=== PATIENT | female | born 1995 | race African-American/Black ===

== ENCOUNTER 2017-11-24 00:18 | Emergency (ER) | payer OTHER ==
[2017-11-24 00:31] VITALS: BP 109/59; PULSE 72; TEMP 98.1; BMI 39.8
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
[2017-11-24] MEDS ORDERED: morphine CARPU-JECT 2 MG/1 ML DISP.SYRIN IM ONE (01:40)
[2017-11-24] MEDS ORDERED: diazePAM 5 MG TABLET PO ONE (01:40)
[2017-11-24] MEDS ORDERED: diazePAM 5 MG TABLET ONE (01:52)
[2017-11-24 02:59] LABS: HCG,QUALITATIVE URINE NEGATIVE; URINE APPEARANCE CLEAR; URINE BILIRUBIN NEGATIVE (<2.0 mg/dL); URINE BLOOD NEGATIVE (NEGATIVE); URINE COLOR YELLOW; URINE GLUCOSE (UA) NEGATIVE (NEGATIVE); URINE KETONE NEGATIVE (NEGATIVE); URINE LEUK ESTERASE TRACE (NEGATIVE); URINE NITRITE NEGATIVE (NEGATIVE); URINE PROTEIN NEGATIVE (NEGATIVE)
[2017-11-24 03:08] LABS: EPI CELLS RARE /HPF (FEW); URINE BACTERIA RARE /hpf (NONE SEEN); URINE MUCUS RARE
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
[2017-11-24] MEDS ORDERED: KETOROLAC TROMETHAMINE 30 MG/1 ML VIAL IM ONE (03:32)
[2017-11-24] MEDS: KETOROLAC TROMETHAMINE 60 MG/2 ML VIAL IM ONE ×2 (03:33→03:34)
[2017-11-24] MEDS ORDERED: KETOROLAC TROMETHAMINE 30 MG/1 ML VIAL ONE (03:34)
== END 2017-11-24 03:27 | disposition home or self-care (01) ==
LOC: JER 00:18
PROC: 3E0233Z Introduction of Anti-inflammatory into Muscle, Percutaneous Approach (ICD-10-PCS; principal; 2017-11-24)
DX: M54.5 Low back pain (principal); X50.0XXA Overexertion from strenuous movement or load, initial encounter; Y93.89 Activity, other specified; Y92.512 Supermarket, store or market as the place of occurrence of the external cause; Y99.0 Civilian activity done for income or pay
CPT/HCPCS: 81003; 81015; 84703; 96372; 99282-25

== ENCOUNTER 2020-04-03 10:44 | Emergency (ER) | payer OTHER ==
[2020-04-03 10:51] VITALS: BP 153/91; PULSE 100; TEMP 98.2; BMI 39.3
--- NOTE | 2020-04-03 11:07 | PDOC ---
History of Present Illness - General Chief Complaint: Pain Stated Complaint: PAIN Time Seen by Provider: 04/03/20 10:59 History Source: Patient - History of Present Illness Timing/Duration: reports: other Quality: reports: mild Abdominal Pain Onset Location: reports: other (lower abd) Past History - Medical History Allergies/Adverse Reactions: Allergies Allergy/AdvReac Type Severity Reaction Status Date / Time No Known Allergies Allergy Verified 04/03/20 10:50 Home Medications: Ambulatory Orders Nitrofurantoin Monohyd/M-Cryst [Macrobid -] 100 mg PO BID #14 capsule 04/03/20 No122/Iron/Folic Acid [ Multi Tablet] 1 each PO DAILY 04/03/20 Anemia: No Asthma: Yes Cancer: No Cardiac Disorders: No CVA: No COPD: No CHF: No DVT: No Dementia: No Diabetes: No GI Disorders: No Disorders: No HTN: No Hypercholesterolemia: Yes Liver Disease: No Seizures: No Thyroid Disease: Yes (hypothyroidism) - Surgical History Abdominal Surgery: Yes (hernia repair may 1994) Appendectomy: No Cardiac Surgery: No Cholecystectomy: No Lung Surgery: No Neurologic Surgery: No Orthopedic Surgery: No - Immunization History Immunization Up to Date: Yes - Psycho-Social/Smoking History Smoking History: Never smoked Have you smoked in the past 12 months: No Review of Systems - Review of Systems Constitutional: No: Chills, Fever ABD/GI: Yes: Abdominal cramping. No: Nausea, Vomiting : No: Dysuria, Flank Pain, Hematuria *Physical Exam - Vital Signs Last Vital Signs Temp Pulse Resp BP Pulse Ox 98.2 F 100 H 18 153/91 100 04/03/20 10:46 04/03/20 10:46 04/03/20 10:46 04/03/20 10:46 04/03/20 10:46 - Physical Exam General Appearance: Yes: Appropriately Dressed. No: Apparent Distress HEENT: positive: Normal Voice Neck: negative: Supple Respiratory/Chest: negative: Respiratory Distress Gastrointestinal/Abdominal: positive: Soft. negative: Tender Musculoskeletal: negative: CVA Tenderness Integumentary: positive: Dry, Warm Neurologic: positive: Fully Oriented, Alert, Normal Mood/Affect ED Treatment Course - RADIOLOGY Radiology Studies Ordered: Category Date Time Status TRANSVAGINAL US PREG [US] Stat Ultrasound 04/03/20 11:04 Ordered Medical Decision Making - Medical Decision Making 04/03/20 11:05 25 yo F, , ~5 weeks by dates, tested + on upreg test at work 3 days ago, here w/ abd cramping x 1 week, no vag bleed, dysuria, n/v/f/c see exam 1st trimester pain R/o ectopic vs abd pain of nl preg, r/o uti -beta -UA -US 04/03/20 12:06 ~5 weeks ges sac in utero, no yolk sac or pole. UA w/ trace LE and > 200 obey, will tx. Ucx sent. Pt to f/u with LICENSE CLERK this week Discharge - Discharge Information Problems reviewed: Yes Clinical Impression/Diagnosis: Abdominal pain affecting Condition: Good Disposition: HOME - Additional Discharge Information Prescriptions: Nitrofurantoin Monohyd/M-Cryst [Macrobid -] 100 mg PO BID #14 capsule - Follow up/Referral Referrals: Anastasia Kelley MD [Primary Care Provider] - - Patient Discharge Instructions Additional Instructions: It appears you have early sign of (gestational sac) in your uterus measuring about 5 weeks You were started on antibiotics for possible UTI Please return for worsening abd pain or vaginal bleeding Please follow up with LICENSE CLERK tis week - Post Discharge Activity
[2020-04-03 12:01] LABS: HCG,QUALITATIVE URINE Positive
[2020-04-03 12:05] LABS: EPI CELLS 29 /uL (0-25.1); HYALINE CASTS 1 /uL (0-3.1); URINE APPEARANCE CLEAR; URINE BACTERIA 254 /uL (0-1359); URINE BILIRUBIN NEGATIVE (NEGATIVE); URINE COLOR YELLOW; URINE GLUCOSE (UA) NEGATIVE (NEGATIVE); URINE KETONE 2+ (NEGATIVE); URINE LEUK ESTERASE TRACE (NEGATIVE); URINE NITRITE NEGATIVE (NEGATIVE); URINE PROTEIN 2+ (NEGATIVE); URINE RBC 5 /uL (0-23.9); URINE WBC 20 /uL (0-25.8)
== END 2020-04-03 12:34 | disposition home or self-care (01) ==
LOC: JER 10:44
DX: O99.89 Other specified diseases and conditions complicating pregnancy, childbirth and the puerperium (principal)
CPT/HCPCS: 36415; 76817-TC; 81003; 84702; 84703; 87077; 87086; 99284-25

== ENCOUNTER 2020-04-07 06:58 | Emergency (ER) | payer OTHER ==
--- NOTE | 2020-04-07 07:45 | PDOC ---
History of Present Illness - General Chief Complaint: Vaginal Bleeding Stated Complaint: 5 WEEKS / SPOTTING - History of Present Illness Initial Comments: The pt is a 25F at approximately 5 weeks by US who presents for evaluation of 4-5 days of pelvic cramping with 1 day of spotting. The pt was recently evaluated here on 04/03/2020, was found to have a UTI and was treated with Macrobid. This morning the pt noted small amount of spotting w/ urination. She has not noted any spotting outside of that instance. She has not taken anything for her pain this AM because she was concerned about taking Macrobid with Tylenol. Denies fevers/chills, chest pain, trouble breathing, [place], vision changes, blood in stool 04/07/20 08:30 Past History - Medical History Allergies/Adverse Reactions: Allergies Allergy/AdvReac Type Severity Reaction Status Date / Time No Known Allergies Allergy Verified 04/07/20 07:23 Home Medications: Ambulatory Orders Nitrofurantoin Monohyd/M-Cryst [Macrobid -] 100 mg PO BID #14 capsule 04/03/20 No122/Iron/Folic Acid [ Multi Tablet] 1 each PO DAILY 04/03/20 Cephalexin Monohydrate [Keflex -] 500 mg PO BID #6 capsule 04/07/20 Anemia: No Asthma: Yes Cancer: No Cardiac Disorders: No CVA: No COPD: No CHF: No DVT: No Dementia: No Diabetes: No GI Disorders: No Disorders: No HTN: No Hypercholesterolemia: Yes Liver Disease: No Seizures: No Thyroid Disease: Yes (hypothyroidism) - Surgical History Abdominal Surgery: Yes (hernia repair may 1994) Appendectomy: No Cardiac Surgery: No Cholecystectomy: No Lung Surgery: No Neurologic Surgery: No Orthopedic Surgery: No - Reproductive History Is Patient Now?: No - Immunization History Immunization Up to Date: Yes - Psycho-Social/Smoking History Smoking History: Never smoked Have you smoked in the past 12 months: No Information on smoking cessation initiated: No - Substance Abuse Hx (Audit-C & DAST Scrn) How often the patient has a drink containing alcohol: Never Score: In Men: 4 or > Positive; In Women: 3 or > Positive: 0 Screen Result (Pos requires Nsg. Audit-10AR): Negative In the last yr the pt used illegal drug/Rx for NonMed reason: No Score: Yes response is considered Positive: 0 Screen Result (Positive result requires Nsg. DAST-10): Negative Review of Systems - Review of Systems Able to Perform ROS?: Yes Comments:: GENERAL/CONSTITUTIONAL: No fever or chills. No weakness HEAD, EYES, EARS, NOSE AND THROAT: No change in vision. No change in hearing. No sore throat CARDIOVASCULAR: No chest pain or shortness of breath RESPIRATORY: Denies cough, hemoptysis GASTROINTESTINAL: No nausea, vomiting, diarrhea or constipation GENITOURINARY: Hematuria MUSCULOSKELETAL: No joint or muscle swelling or pain. No neck or back pain SKIN: No rash NEUROLOGIC: No headache, vertigo, loss of consciousness, or change in strength/sensation ENDOCRINE: No increased thirst. No abnormal weight change HEMATOLOGIC/LYMPHATIC: No anemia, easy bleeding, or history of blood clots ALLERGIC/IMMUNOLOGIC: No hives or skin allergy 04/07/20 07:44 Is the patient limited [place] proficient: No *Physical Exam - Vital Signs Last Vital Signs Temp Pulse Resp BP Pulse Ox 98.7 F 80 18 145/95 100 04/07/20 07:24 04/07/20 07:24 04/07/20 07:24 04/07/20 07:24 04/07/20 07:24 - Physical Exam GENERAL: Awake, alert, and oriented to person/place/time, in no acute distress HEAD: No signs of trauma, normocephalic, atraumatic EYES: PERRLA, EOMI, sclera anicteric, conjunctiva clear ENT: Hearing grossly normal, nares patent, oropharynx clear without exudates. Moist mucosa LUNGS: No distress, speaks in full sentences, clear to auscultation bilaterally HEART: Regular rate and rhythm, normal S1 and S2, no murmurs appreciated, peripheral pulses normal and equal bilaterally ABDOMEN: Soft, nontender (cramping not worsened with palpation), normoactive bowel sounds. No guarding, no rebound EXTREMITIES: Normal inspection, Normal range of motion, no edema. No clubbing or cyanosis NEUROLOGICAL: Cranial nerves II through XII grossly intact. Normal speech, normal gait, no focal sensorimotor deficits SKIN: Warm, Dry 04/07/20 07:45 ED Treatment Course - LABORATORY CBC & Chemistry Diagram: 04/07/20 08:50 Medical Decision Making - Medical Decision Making The pt is a 25F at approximately 5 weeks by US who presents for evaluation of 4-5 days of pelvic cramping with 1 day of spotting. ED Course CMP, CBC, Coags, T/S, UA, UCx TVUS Tylenol 975mg PO once for pain 04/07/20 08:36 UA w/o evidence of UTI B-hCG 6000s from 1000s TVUS w/ sac w/o pole Pt w/o further spotting in ED Leukocytosis noted, likely reactionary, afebrile, non-tachycardic No anemia Coags wnl Plan for D/C w/ OBGYN f/u Pt to see OBGYN on Saturday Discharge instructions and return precautions given Patient in agreement and verbalized understanding Dispo: Home 04/07/20 19:02 Discharge - Discharge Information Problems reviewed: Yes Clinical Impression/Diagnosis: Abdominal pain affecting Condition: Stable Disposition: HOME - Admission No - Additional Discharge Information Prescriptions: Cephalexin Monohydrate [Keflex -] 500 mg PO BID #6 capsule - Follow up/Referral Referrals: Anastasia Kelley MD [Primary Care Provider] - Murali Liu MD [Staff Physician] - - Patient Discharge Instructions Patient Printed Discharge Instructions: DI for Vaginal Bleeding During Additional Instructions: Activity as tolerated. Stay hydrated. Blood test today show a rising hormone level, however the ultrasound is still not conclusive for a normal . You should follow-up with your doctor today as scheduled, you must follow-up with an SONG WRITER as well. The hormone level and ultrasound need to be repeated to track the status of your . If you cannot establish an appointment with an SONG WRITER within the nex t 48 hours, return to the emergency department. Continue your medications as previously prescribed by your physician, including the antibiotics for UTI. You should follow up with your primary doctor and SONG WRITER as soon as possible regarding today's emergency department visit. Return to the emergency department for any new or concerning symptoms, particularly severe cramping, vaginal bleeding or discharge, abdominal pain, fevers or chills. - Post Discharge Activity
[2020-04-07 07:50] VITALS: BMI 37.8
[2020-04-07] MEDS ORDERED: ACETAMINOPHEN 325 MG TABLET (FP) PO ONE (08:35)
[2020-04-07] MEDS ORDERED: ACETAMINOPHEN 325 MG TABLET (FP) ONE (08:48)
[2020-04-07 09:21] LABS: BASO % 0.6 % (0-2.0); EOS % 0.7 % (0-4.5); HEMATOCRIT 41.6 % (32.4-45.2); HEMOGLOBIN 14.3 GM/dL (10.7-15.3); LYMPH % 23.3 % (8-40); MCH 26.4 pg (25.7-33.7); MCHC 34.4 g/dl (32.0-36.0); MEAN CELL VOLUME 76.7 fl (80-96); MEAN PLT VOLUME 7.7 fl (7.5-11.1); MONO % 3.9 % (3.8-10.2); NEUT % 71.5 % (42.8-82.8); PLATELET COUNT 377 K/MM3 (134-434); RBC 5.43 M/mm3 (3.60-5.2); RDW 15.1 % (11.6-15.6)
[2020-04-07 09:24] LABS: INR 0.96 (0.83-1.09); PROTHROMBIN TIME (PATIENT) 11.3 SEC (9.7-13.0)
[2020-04-07 09:27] LABS: ACTIVATED PTT 29.4 SECONDS (25.2-36.5)
[2020-04-07 09:27] LABS: URINE APPEARANCE CLEAR; URINE BILIRUBIN NEGATIVE (NEGATIVE); URINE COLOR YELLOW; URINE GLUCOSE (UA) NEGATIVE (NEGATIVE); URINE KETONE NEGATIVE (NEGATIVE); URINE LEUK ESTERASE NEGATIVE (NEGATIVE); URINE NITRITE NEGATIVE (NEGATIVE); URINE PROTEIN NEGATIVE (NEGATIVE); URINE UROBILINOGEN 0.2 mg/dL (0.2-1.0)
--- NOTE | 2020-04-07 09:54 | PDOC ---
Attending Attestation - Resident Resident Name: Nickolas Lockett - ED Attending Attestation I have performed the following: I have examined & evaluated the patient, The case was reviewed & discussed with the resident, I agree w/resident's findings & plan - HPI HPI: 04/07/20 09:53 25-year-old female G1 LMP about 5 weeks seen here on 03/03 for cramping and had inconclusive ultrasound with hCG slightly over thousand, diagnosed with UTI and that time and started empirically on Macrobid, presents now with blood tingeing after urination, seen after wiping. No cramping, no sera vaginal bleeding, no fevers or chills. - Physicial Exam PE: 04/07/20 09:54 Vital signs normal Seated comfortably in chair with no acute distress Abdomen benign No CVA tenderness - Medical Decision Making 04/07/20 09:54 25-year-old female first trimester LMP about 5 to 6 weeks presents with questionable blood-tinged urine/spotting, resolved cramping. Inconclusive imaging on prior visit on 03/03, will reassess status of . Repeat hCG Urinalysis ultrasound Disposition accordingly 04/07/20 12:07 labs wnl, HCG rising appropriately but U/S still with gestational sac and no visualized pole. no bleeding here. Pt requesting discharge, has f/u with OB. Will need repeat u/s and hcg trending, can return to ED if cannot establish care with OB. Discharge - Discharge Information Problems reviewed: Yes Clinical Impression/Diagnosis: Abdominal pain affecting Condition: Stable Disposition: HOME - Follow up/Referral Referrals: Anastasia Kelley MD [Primary Care Provider] - Murali Liu MD [Staff Physician] - - Patient Discharge Instructions Patient Printed Discharge Instructions: DI for Vaginal Bleeding During Additional Instructions: Activity as tolerated. Stay hydrated. Blood test today show a rising hormone level, however the ultrasound is still not conclusive for a normal . You should follow-up with your doctor today as scheduled, you must follow-up with an C[employer] VAN SALESPERSON as well. The hormone level and ultrasound need to be repeated to track the status of your . If you cannot establish an appointment with an C[employer] VAN SALESPERSON within the next 48 hours, return to the emergency department. Continue your medications as previously prescribed by your physician, including the antibiotics for UTI. You should follow up with your primary doctor and C[employer] VAN SALESPERSON as soon as possible regarding today's emergency department visit. Return to the emergency department for any new or concerning symptoms, particularly severe cramping, vaginal bleeding or discharge, abdominal pain, fevers or chills. - Post Discharge Activity
[2020-04-07 12:10] VITALS: BP 140/85; PULSE 73; TEMP 98.2
--- NOTE | 2020-04-07 16:50 | PDOC ---
Patient Follow-up (Call Back) - Post ED Follow - Up Condition at time of discharge: Stable Disposition at time of original discharge: HOME Reason for Call Back: Abnwl. Microbiology (Patient was strep group B in her urine culture from 04/03/2020. Patient was placed on Macrobid at discharge at that time. We will switch the patient to Keflex to fully treat the UTI. Prescription sent to patient's pharmacy.)
== END 2020-04-07 12:23 | disposition home or self-care (01) ==
LOC: JER 06:58
DX: O26.891 Other specified pregnancy related conditions, first trimester (principal)
CPT/HCPCS: 36415; 76817-TC; 81003; 84702; 85025; 85610; 85730; 86850; 86900; 86901; 99284-25

== ENCOUNTER 2020-04-08 12:34 | Emergency (ER) | payer OTHER ==
[2020-04-08 12:42] VITALS: BP 149/58; PULSE 98; TEMP 99.3; BMI 37.8
[2020-04-08] MEDS ORDERED: RHO(D) IMMUNE GLOBULIN 1,500 UNIT DISP.SYRIN IM ONE (12:49)
--- NOTE | 2020-04-08 13:54 | PDOC ---
History of Present Illness - General Stated Complaint: MEDICATION Time Seen by Provider: 04/08/20 12:48 History Source: Patient, Old Records Exam Limitations: No Limitations - History of Present Illness Travel History: No Initial Comments: 04/08/20 13:55 HISTORY OF PRESENT ILLNESS: 25-year-old primigravida who is currently 5 weeks gestation presents emergency department as directed by her WATER TESTER. Patient was seen and evaluated here twice this week was found to have some vaginal bleeding. Patient's blood type is O- and requires RhoGam. Patient still having some occasional spotting which she only notices while wiping. Patient with some slight abdominal cramping for which she has taken Tylenol this morning. No recent travel or sick contacts. PAST MEDICAL HISTORY: Denies past medical history SURGICAL HISTORY: Denies ALLERGIES: No known drug allergies REVIEW OF SYSTEMS General/Constitutional: Denies fever or chills. Denies weakness, weight change. HEENT: Denies change in vision. Denies ear pain or discharge. Denies sore throat. Cardiovascular: Denies chest pain or shortness of breath. Respiratory: Denies cough, wheezing, or hemoptysis. Gastrointestinal: Denies nausea, vomiting, diarrhea or constipation. Denies rectal bleeding. Genitourinary: See HPI Musculoskeletal: Denies joint or muscle swelling or pain. Denies neck or back pain. Skin and breasts: Denies rash or easy bruising. Neurologic: Denies headache, vertigo, loss of consciousness, or loss of sensation. Psychiatric: Denies depression or anxiety. Endocrine: Denies increased thirst. Denies abnormal weight change. Hematologic/Lymphatic: Denies anemia, easy bleeding, or history of blood clots. Allergic/Immunologic: Denies hives or skin allergy. Denies latex allergy. PHYSICAL EXAM General Appearance: Well-appearing, appropriately dressed. No apparent distress, no intoxication. Respiratory/Chest: Lungs CTAB. No shortness of breath, chest tenderness, respiratory distress, accessory muscle use. No crackles, rales, rhonchi, stridor, wheezing, dullness Cardiovascular: RRR. S1, S2. No JVD, murmur, bradycardia, tachycardia. Gastrointestinal/Abdominal: Normal bowel sounds. Abdomen soft, non-distended. No tenderness or rebound tenderness. No organomegaly, pulsatile mass, guarding, hernia, hepatomegaly, splenomegaly. Past History - Medical History Allergies/Adverse Reactions: Allergies Allergy/AdvReac Type Severity Reaction Status Date / Time No Known Allergies Allergy Verified 04/07/20 07:23 Home Medications: Ambulatory Orders Nitrofurantoin Monohyd/M-Cryst [Macrobid -] 100 mg PO BID #14 capsule 04/03/20 No122/Iron/Folic Acid [ Multi Tablet] 1 each PO DAILY 04/03/20 Cephalexin Monohydrate [Keflex -] 500 mg PO BID #6 capsule 04/07/20 Anemia: No Asthma: Yes Cancer: No Cardiac Disorders: No CVA: No COPD: No CHF: No DVT: No Dementia: No Diabetes: No GI Disorders: No Disorders: No HTN: No Hypercholesterolemia: Yes Liver Disease: No Seizures: No Thyroid Disease: Yes (hypothyroidism) - Surgical History Abdominal Surgery: Yes (hernia repair may 1994) Appendectomy: No Cardiac Surgery: No Cholecystectomy: No Lung Surgery: No Neurologic Surgery: No Orthopedic Surgery: No - Reproductive History Is Patient Now?: No (#): 1 Para: 0 - Immunization History Immunization Up to Date: Yes - Psycho-Social/Smoking History Smoking History: Never smoked Have you smoked in the past 12 months: No - Substance Abuse Hx (Audit-C & DAST Scrn) How often the patient has a drink containing alcohol: Monthly or less How often the patient has six or more drinks on one occasion: Never Score: In Men: 4 or > Positive; In Women: 3 or > Positive: 1 Screen Result (Pos requires Nsg. Audit-10AR): Negative In the last yr the pt used illegal drug/Rx for NonMed reason: No Score: Yes response is considered Positive: 0 Screen Result (Positive result requires Nsg. DAST-10): Negative *Physical Exam - Vital Signs Last Vital Signs Temp Pulse Resp BP Pulse Ox 99.3 F 98 H 18 149/58 L 100 04/08/20 12:38 04/08/20 12:38 04/08/20 12:38 04/08/20 12:38 04/08/20 12:38 Medical Decision Making - Medical Decision Making 04/08/20 13:56 A/P: 25-year-old woman with vaginal bleeding, abdominal cramping in early Laboratory Tests 04/03/20 04/07/20 11:00 08:34 Beta HCG, Quant 1126.0 6231.9 Patient's beta-hCG with appropriate bump on her previous 2 visits. Patient is requesting a repeat beta-hCG today. As patient has a known blood type of O- repeat type and screen is been ordered as well as RhoGam to treat vaginal bleeding with Rh- blood. Extensive counseling has been performed with the patient to understand the reason for the repeat blood work as well as need for RhoGam. Was explained to the patient that pelvic exam and ultrasound can be deferred at this time as she has had these exams performed already this week without significant findings. Patient is scheduled to follow-up with her WATER TESTER Saturday for repeat ultrasound there. Discharge - Discharge Information Problems reviewed: Yes Clinical Impression/Diagnosis: Encounter for prophylactic administration of RhoGAM Condition: Stable Disposition: HOME - Admission No - Follow up/Referral Referrals: Anastasia Kelley MD [Primary Care Provider] - - Patient Discharge Instructions Additional Instructions: Take your vitamins. Keep well-hydrated. Avoid tobacco and alcohol as well as illegal drugs. Make an appointment with your WATER TESTER for reevaluation. You received RhoGam today. Your beta hCG today is 8791.5 Return to the emergency department immediately for severe pain, vaginal bleeding that requires more than 2 pads per hour or for any other symptoms. Thank you very much for choosing us to provide your emergent health care needs. - Post Discharge Activity
== END 2020-04-08 15:31 | disposition home or self-care (01) ==
LOC: JERFT 12:34
DX: Z41.8 Encounter for other procedures for purposes other than remedying health state (principal)
CPT/HCPCS: 36415; 84702; 86850; 86900; 86901; 86999; 99282-25; J1561

== ENCOUNTER 2021-08-01 11:20 | Emergency (ER) | payer OTHER ==
[2021-08-01 11:31] VITALS: BP 132/83; PULSE 93; TEMP 98.1; BMI 43.7
[2021-08-01] MEDS ORDERED: ACETAMINOPHEN/CAFFEINE/BUTALBITAL 1 TAB PO ONE (12:24)
[2021-08-01] MEDS ORDERED: ACETAMINOPHEN/CAFFEINE/BUTALBITAL 1 TAB ONE (12:27)
== END 2021-08-01 14:17 | disposition home or self-care (01) ==
LOC: JERFT 11:20
DX: R51.9 Headache, unspecified (principal)
CPT/HCPCS: 99283-25

== ENCOUNTER 2023-01-07 13:26 | Emergency (ER) | payer OTHER ==
[2023-01-07 13:42] VITALS: RESP 20; BMI 35.9
[2023-01-07 14:45] LABS: HEMATOCRIT 40.2 % (32.4-45.2); HEMOGLOBIN 13.8 G/dL (10.7-15.3); MCH 26.3 pg (25.7-33.7); MCHC 34.4 g/dl (32.0-36.0); MEAN CELL VOLUME 76.6 fl (80-96); MEAN PLT VOLUME 8.6 fl (7.5-11.1); RBC 5.25 10^6/uL (3.60-5.2); RDW 17.3 % (11.6-15.6); WHITE BLOOD COUNT 10.1 10^3/uL (4.0-10.8)
[2023-01-07 14:46] LABS: EPITHELIAL CELLS FEW /hpf
[2023-01-07 15:03] LABS: ALBUMIN 3.8 g/dl (3.4-5.0); BILIRUBIN,TOTAL 0.6 mg/dl (0.2-1); CALCIUM 8.8 mg/dl (8.5-10); CREATININE 1.7 mg/dl (0.55-1.3); POTASSIUM 3.2 mmol/L (3.5-5.1); TOT PROT 7.8 g/dl (6.4-8.2)
[2023-01-07] MEDS ORDERED: POTASSIUM CHLORIDE ORAL LIQUID 20 MEQ/15 ML PO ONE (15:30)
[2023-01-07] MEDS ORDERED: amLODIPine BESYLATE 10 MG TABLET (FP) PO ONE (15:36)
[2023-01-07] MEDS ORDERED: POTASSIUM CHLORIDE ORAL LIQUID 20 MEQ/15 ML ONE (15:47)
[2023-01-07] MEDS ORDERED: amLODIPine BESYLATE 5 MG TABLET (FP) ONE (15:47)
[2023-01-07 15:49] VITALS: PULSE 80; TEMP 99.2
[2023-01-07 16:36] VITALS: BP 160/111
== END 2023-01-07 16:44 | disposition home or self-care (01) ==
LOC: FER 13:26
DX: R79.89 Other specified abnormal findings of blood chemistry (principal); I10 Essential (primary) hypertension
CPT/HCPCS: 36415; 80053; 80061; 81003; 81015; 83036; 84443; 84484; 84703; 85027; 93005; 99285-25

== ENCOUNTER 2023-03-25 10:11 | Emergency (ER) | payer OTHER ==
[2023-03-25 10:23] VITALS: BP 146/96; PULSE 79; RESP 18; TEMP 98.1; BMI 36.0
== END 2023-03-25 11:26 | disposition home or self-care (01) ==
LOC: FER 10:11
PROC: 2W3KX1Z Immobilization of Left Finger using Splint (ICD-10-PCS; principal; 2023-03-25)
DX: S62.607A Fracture of unspecified phalanx of left little finger, initial encounter for closed fracture (principal); M79.645 Pain in left finger(s); V86.55XA Driver of 3- or 4- wheeled all-terrain vehicle (ATV) injured in nontraffic accident, initial encounter; Y93.I9 Activity, other involving external motion; Y92.89 Other specified places as the place of occurrence of the external cause
CPT/HCPCS: 73130-TC-LT-FY; 99283-25

== ENCOUNTER 2024-03-11 13:44 | Inpatient (IN) | payer OTHER ==
[2024-03-11] MEDS ORDERED: amLODIPine BESYLATE 5 MG TABLET (FP) ONE (14:20)
[2024-03-11] MEDS: amLODIPine BESYLATE 10 MG TABLET (FP) PO ONE (14:25)
[2024-03-11 14:33] LABS: HCG,QUALITATIVE URINE Negative
[2024-03-11 14:49] LABS: EPITHELIAL CELLS 0-5 /hpf
[2024-03-11 15:52] LABS: HEMATOCRIT 44.1 % (32.4-45.2); MCH 25.8 pg (25.7-33.7); MEAN CELL VOLUME 76.1 fl (80-96); MEAN PLT VOLUME 8.9 fl (7.5-11.1); PLATELET COUNT 278.4 10^3/uL (134-434); RDW 17.5 % (11.6-15.6)
[2024-03-11 15:57] LABS: ALBUMIN 3.8 g/dl (3.4-5.0); BILIRUBIN,TOTAL 0.4 mg/dl (0.2-1); CALCIUM 8.8 mg/dl (8.5-10.1); CREATININE 3.4 mg/dl (0.6-1.3); POTASSIUM 3.4 mmol/L (3.5-5.1); TOT PROT 7.1 g/dl (6.4-8.2)
[2024-03-11 15:58] LABS: PLATELET ESTIMATE ADEQUATE
[2024-03-11] MEDS ORDERED: LABETALOL HCL 5 MG/1 ML (100MG/20 ML VIAL) ONE (21:35)
[2024-03-11] MEDS: LABETALOL HCL 5 MG/1 ML (100MG/20 ML VIAL) IVPUSH ONE (21:42)
[2024-03-12 05:32] VITALS: BMI 39.0
[2024-03-12 07:56] LABS: BASO % 0.5 % (0-2.0); EOS % 1.4 % (0-4.5); HEMATOCRIT 37.7 % (32.4-45.2); HEMOGLOBIN 12.9 GM/dL (10.7-15.3); INR 0.95 (0.83-1.09); LYMPH % 19.2 % (8-40); MCH 25.4 pg (25.7-33.7); MCHC 34.3 g/dl (32.0-36.0); MEAN CELL VOLUME 74.1 fl (80-96); MONO % 3.1 % (3.8-10.2); NEUT % 75.8 % (42.8-82.8); PLATELET COUNT 347 10^3/uL (134-434); POTASSIUM 3.1 mmol/L (3.5-5.1); PROTHROMBIN TIME (PATIENT) 10.7 SEC (9.7-13.0); RBC 5.09 M/mm3 (3.60-5.2); RDW 16.2 % (11.6-15.6); WHITE BLOOD COUNT 13.5 K/mm3 (4.0-10.0)
[2024-03-12 07:57] LABS: CALCIUM 7.9 mg/dL (8.5-10.1)
[2024-03-12 07:58] LABS: ACTIVATED PTT 36.2 SECONDS (25.2-36.5); BLOOD UREA NITROGEN 39.3 mg/dL (7-18)
[2024-03-12 08:01] LABS: CREATININE 3.5 mg/dL (0.55-1.3)
[2024-03-12] MEDS: LABETALOL HCL 5 MG/1 ML (100MG/20 ML VIAL) IVPUSH ONE (08:39)
[2024-03-12] MEDS: POTASSIUM CHLORIDE TABS 20 MEQ TABLET.ER (FP) PO ONE (08:51)
[2024-03-12] MEDS: FUROSEMIDE 40 MG/4 ML INJECTABLE VIAL IVPUSH SCH (09:59)
[2024-03-12] MEDS: LABETALOL HCL 200 MG TABLET (FP) PO SCH (09:59)
[2024-03-12 13:40] LABS: RETICULOCYTES 1.78 % (0.5-1.5)
[2024-03-12] MEDS: HEPARIN NA (PORCINE) 5,000 UNITS/ML 1ML VIAL SQ SCH (13:59)
[2024-03-12] MEDS: ACETAMINOPHEN 325 MG TABLET (FP) PO PRN (15:56)
[2024-03-13] MEDS: LABETALOL HCL 20 MG/4 ML VIAL IVPUSH ONE (04:22)
[2024-03-13] MEDS: LABETALOL HCL 200 MG TABLET (FP) PO ONE (05:37)
[2024-03-13 07:19] LABS: BASO % 1.1 % (0-2.0); HEMATOCRIT 36.3 % (32.4-45.2); HEMOGLOBIN 12.7 GM/dL (10.7-15.3); LYMPH % 26.7 % (8-40); MCH 25.8 pg (25.7-33.7); MEAN CELL VOLUME 73.9 fl (80-96); MEAN PLT VOLUME 7.6 fl (7.5-11.1); MONO % 4.8 % (3.8-10.2); NEUT % 65.4 % (42.8-82.8); PLATELET COUNT 346 10^3/uL (134-434); RBC 4.92 M/mm3 (3.60-5.2); RDW 15.9 % (11.6-15.6); WHITE BLOOD COUNT 11.2 K/mm3 (4.0-10.0)
[2024-03-13 07:32] LABS: POTASSIUM 3.2 mmol/L (3.5-5.1)
[2024-03-13 07:34] LABS: BLOOD UREA NITROGEN 42.2 mg/dL (7-18); CALCIUM 8.4 mg/dL (8.5-10.1)
[2024-03-13 07:35] LABS: MAGNESIUM 2.2 mg/dL (1.8-2.4)
[2024-03-13 07:38] LABS: CREATININE 3.8 mg/dL (0.55-1.3)
[2024-03-13 07:39] LABS: BILIRUBIN,TOTAL 0.5 mg/dL (0.2-1); TOT PROT 7.1 g/dl (6.4-8.2)
[2024-03-13] MEDS ORDERED: FUROSEMIDE 40 MG TABLET (FP) PO SCH (10:00)
[2024-03-13] MEDS: LABETALOL HCL 100 MG TABLET (FP) PO ONE (10:36)
[2024-03-13] MEDS: POTASSIUM CHLORIDE ORAL LIQUID 20 MEQ/15 ML PO ONE (17:11)
[2024-03-13] MEDS: LABETALOL HCL 100 MG TABLET (FP) PO SCH (21:10)
[2024-03-14 07:43] LABS: BASO % 0.8 % (0-2.0); EOS % 2.4 % (0-4.5); HEMATOCRIT 37.2 % (32.4-45.2); HEMOGLOBIN 12.7 GM/dL (10.7-15.3); LYMPH % 32.5 % (8-40); MCH 25.6 pg (25.7-33.7); MCHC 34.2 g/dl (32.0-36.0); MEAN CELL VOLUME 74.9 fl (80-96); MEAN PLT VOLUME 7.9 fl (7.5-11.1); MONO % 5.2 % (3.8-10.2); NEUT % 59.1 % (42.8-82.8); PLATELET COUNT 345 10^3/uL (134-434); RBC 4.96 M/mm3 (3.60-5.2); WHITE BLOOD COUNT 11.4 K/mm3 (4.0-10.0)
[2024-03-14 08:00] LABS: POTASSIUM 4.4 mmol/L (3.5-5.1)
[2024-03-14 08:07] LABS: CALCIUM 8.6 mg/dL (8.5-10.1)
[2024-03-14 08:08] LABS: BLOOD UREA NITROGEN 47.8 mg/dL (7-18); MAGNESIUM 2.4 mg/dL (1.8-2.4)
[2024-03-14 08:10] LABS: CREATININE 4.2 mg/dL (0.55-1.3)
[2024-03-14 08:11] LABS: BILIRUBIN,TOTAL 0.4 mg/dL (0.2-1); TOT PROT 6.9 g/dl (6.4-8.2)
[2024-03-14] MEDS ORDERED: ACETAMINOPHEN 1000 MG/100 ML BAG IVPB PRN (15:02)
[2024-03-15 08:15] LABS: POTASSIUM 3.6 mmol/L (3.5-5.1)
[2024-03-15 08:17] LABS: CALCIUM 8.1 mg/dL (8.5-10.1)
[2024-03-15 08:18] LABS: ALBUMIN 2.9 g/dl (3.4-5.0); BLOOD UREA NITROGEN 40.8 mg/dL (7-18)
[2024-03-15 08:22] LABS: BILIRUBIN,TOTAL 0.4 mg/dL (0.2-1); TOT PROT 6.8 g/dl (6.4-8.2)
[2024-03-15] MEDS: amLODIPine BESYLATE 5 MG TABLET (FP) PO ONE (17:38)
[2024-03-16 08:15] LABS: BASO % 0.8 % (0-2.0); EOS % 2.7 % (0-4.5); HEMATOCRIT 35.8 % (32.4-45.2); HEMOGLOBIN 12.2 GM/dL (10.7-15.3); LYMPH % 27.4 % (8-40); MCH 25.3 pg (25.7-33.7); MCHC 33.9 g/dl (32.0-36.0); MEAN CELL VOLUME 74.4 fl (80-96); MEAN PLT VOLUME 7.9 fl (7.5-11.1); MONO % 3.7 % (3.8-10.2); NEUT % 65.4 % (42.8-82.8); PLATELET COUNT 356 10^3/uL (134-434); RBC 4.81 M/mm3 (3.60-5.2); RDW 16.1 % (11.6-15.6); WHITE BLOOD COUNT 8.8 K/mm3 (4.0-10.0)
[2024-03-16 08:19] LABS: POTASSIUM 3.9 mmol/L (3.5-5.1)
[2024-03-16 08:23] LABS: ALBUMIN 2.8 g/dl (3.4-5.0); BLOOD UREA NITROGEN 36.6 mg/dL (7-18); MAGNESIUM 2.2 mg/dL (1.8-2.4)
[2024-03-16 08:26] LABS: CREATININE 3.4 mg/dL (0.55-1.3)
[2024-03-16 08:27] LABS: PHOSPHOROUS 4.1 mg/dL (2.5-4.9)
[2024-03-16 08:28] LABS: BILIRUBIN,TOTAL 0.5 mg/dL (0.2-1)
[2024-03-16] MEDS: amLODIPine BESYLATE 5 MG TABLET (FP) PO SCH (11:17)
[2024-03-16] MEDS ORDERED: LABETALOL HCL 20 MG/4 ML VIAL ONE ×3 (11:22→14:09)
[2024-03-16] MEDS ORDERED: MIDAZOLAM HCL 2 MG/2 ML SINGLE DOSE VIAL ONE ×2 (11:23→14:09)
[2024-03-16] MEDS ORDERED: DESMOPRESSIN ACETATE 4 MCG/ML 10 ML VIAL IVPB ONE (17:00)
[2024-03-16] MEDS: TRIMETHOBENZAMIDE HCL 200MG/2ML INJ IM ONE (17:31)
[2024-03-16] MEDS: DESMOPRESSIN ACETATE 30 MCG in SODIUM CHLORIDE 50 ML IVPB ONE (19:01)
[2024-03-16] MEDS: ACETAMINOPHEN 325 MG TABLET (FP) PO PRN (21:45)
[2024-03-16 22:07] LABS: ANTIGLOMERULAR BASEMENT MEN.AB <0.2 units (0.0-0.9)
[2024-03-17 03:34] LABS: HEMATOCRIT 28.2 % (32.4-45.2); HEMOGLOBIN 9.6 GM/dL (10.7-15.3); MCH 25.3 pg (25.7-33.7); MEAN CELL VOLUME 74.4 fl (80-96); MEAN PLT VOLUME 7.6 fl (7.5-11.1); PLATELET COUNT 287 10^3/uL (134-434); RBC 3.79 M/mm3 (3.60-5.2); RDW 16.3 % (11.6-15.6); WHITE BLOOD COUNT 15.2 K/mm3 (4.0-10.0)
[2024-03-17 03:54] LABS: POTASSIUM 4.5 mmol/L (3.5-5.1)
[2024-03-17 03:57] LABS: ALBUMIN 2.8 g/dl (3.4-5.0); BLOOD UREA NITROGEN 39.5 mg/dL (7-18)
[2024-03-17 04:01] LABS: TOT PROT 6.4 g/dl (6.4-8.2)
[2024-03-17 04:02] LABS: BILIRUBIN,TOTAL 0.4 mg/dL (0.2-1)
[2024-03-17 08:57] LABS: HEMATOCRIT 28.3 % (32.4-45.2); HEMOGLOBIN 9.6 GM/dL (10.7-15.3); MCH 25.5 pg (25.7-33.7); MEAN CELL VOLUME 75.1 fl (80-96); MEAN PLT VOLUME 7.7 fl (7.5-11.1); PLATELET COUNT 280 10^3/uL (134-434); RBC 3.77 M/mm3 (3.60-5.2); RDW 16.1 % (11.6-15.6); WHITE BLOOD COUNT 13.7 K/mm3 (4.0-10.0)
[2024-03-17 09:16] LABS: BLOOD UREA NITROGEN 42.4 mg/dL (7-18); CALCIUM 8.1 mg/dL (8.5-10.1)
[2024-03-17 09:17] LABS: ALBUMIN 2.9 g/dl (3.4-5.0)
[2024-03-17 09:20] LABS: CREATININE 3.9 mg/dL (0.55-1.3)
[2024-03-17 09:21] LABS: TOT PROT 6.7 g/dl (6.4-8.2)
[2024-03-17 09:22] LABS: BILIRUBIN,TOTAL 0.4 mg/dL (0.2-1)
[2024-03-17 09:28] LABS: RETICULOCYTES 1.39 % (0.5-1.5)
[2024-03-17] MEDS: amLODIPine BESYLATE 5 MG TABLET (FP) PO SCH (09:32)
[2024-03-17 13:02] LABS: HEMOGLOBIN 9.2 GM/dL (10.7-15.3); MCH 25.5 pg (25.7-33.7); MCHC 33.9 g/dl (32.0-36.0); MEAN CELL VOLUME 75.2 fl (80-96); MEAN PLT VOLUME 7.6 fl (7.5-11.1); PLATELET COUNT 246 10^3/uL (134-434); RDW 15.9 % (11.6-15.6); WHITE BLOOD COUNT 12.3 K/mm3 (4.0-10.0)
[2024-03-17 16:09] LABS: C-ANCA <1:20 titer (Neg:<1:20)
[2024-03-17 17:27] LABS: HEMATOCRIT 26.1 % (32.4-45.2); HEMOGLOBIN 8.9 GM/dL (10.7-15.3); MCH 25.6 pg (25.7-33.7); MCHC 34.2 g/dl (32.0-36.0); MEAN CELL VOLUME 74.6 fl (80-96); MEAN PLT VOLUME 7.9 fl (7.5-11.1); PLATELET COUNT 259 10^3/uL (134-434); RDW 15.9 % (11.6-15.6); WHITE BLOOD COUNT 12.2 K/mm3 (4.0-10.0)
[2024-03-17] MEDS ORDERED: NIFEdipine 10 MG CAPSULE (FP) PO SCH (22:00)
[2024-03-18 07:53] LABS: BASO % 0.5 % (0-2.0); EOS % 2.1 % (0-4.5); HEMATOCRIT 22.2 % (32.4-45.2); HEMOGLOBIN 7.8 GM/dL (10.7-15.3); LYMPH % 30.7 % (8-40); MCH 26.2 pg (25.7-33.7); MCHC 35.2 g/dl (32.0-36.0); MEAN CELL VOLUME 74.4 fl (80-96); MEAN PLT VOLUME 7.6 fl (7.5-11.1); MONO % 3.7 % (3.8-10.2); PLATELET COUNT 240 10^3/uL (134-434); RBC 2.99 M/mm3 (3.60-5.2); RDW 15.7 % (11.6-15.6); WHITE BLOOD COUNT 10.4 K/mm3 (4.0-10.0)
[2024-03-18 08:16] LABS: POTASSIUM 3.5 mmol/L (3.5-5.1)
[2024-03-18 08:21] LABS: ALBUMIN 2.7 g/dl (3.4-5.0); BLOOD UREA NITROGEN 38.8 mg/dL (7-18); CALCIUM 7.6 mg/dL (8.5-10.1)
[2024-03-18 08:23] LABS: CREATININE 3.3 mg/dL (0.55-1.3)
[2024-03-18 08:25] LABS: BILIRUBIN,TOTAL 0.5 mg/dL (0.2-1); PHOSPHOROUS 4.3 mg/dL (2.5-4.9); TOT PROT 6.4 g/dl (6.4-8.2)
[2024-03-18] MEDS ORDERED: NIFEdipine 10 MG CAPSULE (FP) PO SCH (10:00)
[2024-03-18 10:21] LABS: HEMATOCRIT 24.5 % (32.4-45.2); HEMOGLOBIN 8.6 GM/dL (10.7-15.3); MEAN CELL VOLUME 74.2 fl (80-96); MEAN PLT VOLUME 7.8 fl (7.5-11.1); PLATELET COUNT 264 10^3/uL (134-434); RDW 15.7 % (11.6-15.6); WHITE BLOOD COUNT 10.7 K/mm3 (4.0-10.0)
[2024-03-18] MEDS: oxyCODONE HCL 5 MG TABLET PO PRN (10:46)
[2024-03-18 10:56] LABS: POTASSIUM 3.2 mmol/L (3.5-5.1)
[2024-03-18 10:58] LABS: ALBUMIN 2.8 g/dl (3.4-5.0); BLOOD UREA NITROGEN 36.6 mg/dL (7-18); CALCIUM 7.9 mg/dL (8.5-10.1)
[2024-03-18 11:00] LABS: CREATININE 3.4 mg/dL (0.55-1.3)
[2024-03-18 11:03] LABS: BILIRUBIN,TOTAL 0.3 mg/dL (0.2-1); TOT PROT 6.3 g/dl (6.4-8.2)
[2024-03-18 12:37] LABS: HEMATOCRIT 26.3 % (32.4-45.2); MCH 25.4 pg (25.7-33.7); MCHC 34.4 g/dl (32.0-36.0); MEAN CELL VOLUME 73.8 fl (80-96); MEAN PLT VOLUME 7.9 fl (7.5-11.1); PLATELET COUNT 274 10^3/uL (134-434); RBC 3.56 M/mm3 (3.60-5.2); RDW 15.8 % (11.6-15.6); WHITE BLOOD COUNT 10.2 K/mm3 (4.0-10.0)
[2024-03-18] MEDS: FUROSEMIDE 40 MG/4 ML INJECTABLE VIAL IVPUSH ONE (13:45)
[2024-03-18] MEDS: POTASSIUM CHLORIDE ORAL LIQUID 20 MEQ/15 ML PO ONE (17:07)
[2024-03-18 20:30] LABS: HEMATOCRIT 26.8 % (32.4-45.2); HEMOGLOBIN 9.2 GM/dL (10.7-15.3); MCH 25.4 pg (25.7-33.7); MCHC 34.3 g/dl (32.0-36.0); MEAN PLT VOLUME 7.3 fl (7.5-11.1); PLATELET COUNT 300 10^3/uL (134-434); RBC 3.63 M/mm3 (3.60-5.2); RDW 15.6 % (11.6-15.6); WHITE BLOOD COUNT 11.4 K/mm3 (4.0-10.0)
[2024-03-19 07:58] LABS: BASO % 0.5 % (0-2.0); EOS % 2.8 % (0-4.5); HEMATOCRIT 23.4 % (32.4-45.2); HEMOGLOBIN 8.1 GM/dL (10.7-15.3); LYMPH % 31.2 % (8-40); MCH 25.7 pg (25.7-33.7); MCHC 34.8 g/dl (32.0-36.0); MEAN CELL VOLUME 73.8 fl (80-96); MEAN PLT VOLUME 7.7 fl (7.5-11.1); MONO % 4.8 % (3.8-10.2); NEUT % 60.7 % (42.8-82.8); PLATELET COUNT 282 10^3/uL (134-434); RBC 3.17 M/mm3 (3.60-5.2); RDW 15.6 % (11.6-15.6); WHITE BLOOD COUNT 11.1 K/mm3 (4.0-10.0)
[2024-03-19 08:12] LABS: ALBUMIN 2.7 g/dl (3.4-5.0); BLOOD UREA NITROGEN 37.1 mg/dL (7-18); CALCIUM 7.9 mg/dL (8.5-10.1)
[2024-03-19 08:15] LABS: CREATININE 3.1 mg/dL (0.55-1.3); PHOSPHOROUS 4.7 mg/dL (2.5-4.9)
[2024-03-19 08:17] LABS: BILIRUBIN,TOTAL 0.3 mg/dL (0.2-1); TOT PROT 6.3 g/dl (6.4-8.2)
[2024-03-19] MEDS: NIFEdipine E.R 60 MG TABLET PO SCH (10:52)
[2024-03-19] MEDS: FUROSEMIDE 40 MG TABLET (FP) PO ONE (10:54)
[2024-03-19 10:58] VITALS: RESP 18
[2024-03-20 08:33] LABS: HEMATOCRIT 25.6 % (32.4-45.2); HEMOGLOBIN 8.8 GM/dL (10.7-15.3); LYMPH % 25.9 % (8-40); MCH 25.5 pg (25.7-33.7); MCHC 34.5 g/dl (32.0-36.0); MEAN CELL VOLUME 73.9 fl (80-96); MEAN PLT VOLUME 8.1 fl (7.5-11.1); MONO % 3.3 % (3.8-10.2); NEUT % 66.8 % (42.8-82.8); PLATELET COUNT 288 10^3/uL (134-434); RBC 3.46 M/mm3 (3.60-5.2); RDW 15.7 % (11.6-15.6); WHITE BLOOD COUNT 11.7 K/mm3 (4.0-10.0)
[2024-03-20 08:57] LABS: POTASSIUM 3.6 mmol/L (3.5-5.1)
[2024-03-20 09:04] LABS: ALBUMIN 2.8 g/dl (3.4-5.0); CALCIUM 8.2 mg/dL (8.5-10.1)
[2024-03-20 09:05] LABS: BLOOD UREA NITROGEN 36.3 mg/dL (7-18); CREATININE 3.1 mg/dL (0.55-1.3); MAGNESIUM 2.2 mg/dL (1.8-2.4); PHOSPHOROUS 5.2 mg/dL (2.5-4.9)
[2024-03-20 09:06] LABS: BILIRUBIN,TOTAL 0.3 mg/dL (0.2-1); TOT PROT 6.6 g/dl (6.4-8.2)
[2024-03-20 09:12] VITALS: BP 150/98; PULSE 100; TEMP 97.9
== END 2024-03-20 10:09 | disposition home or self-care (01) | DRG 199 ==
LOC: FER 13:44 → J4W 03-12 02:00 → UNDOADMIN 03-12 03:26 → J4W 03-12 03:26
PROVIDERS: ADMIT Internal Medicine; ATTEND Internal Medicine
PROC: 0TB03ZX Excision of Right Kidney, Percutaneous Approach, Diagnostic (ICD-10-PCS; principal; 2024-03-16)
DX: I16.1 Hypertensive emergency (principal); N17.9 Acute kidney failure, unspecified; D62 Acute posthemorrhagic anemia; I12.9 Hypertensive chronic kidney disease with stage 1 through stage 4 chronic kidney disease, or unspecified chronic kidney disease; N99.841 Postprocedural hematoma of a genitourinary system organ or structure following other procedure; Y84.8 Other medical procedures as the cause of abnormal reaction of the patient, or of later complication, without mention of misadventure at the time of the procedure; N18.9 Chronic kidney disease, unspecified; R31.29 Other microscopic hematuria; R80.9 Proteinuria, unspecified; E87.6 Hypokalemia; E03.9 Hypothyroidism, unspecified; D72.829 Elevated white blood cell count, unspecified; D64.9 Anemia, unspecified; M79.89 Other specified soft tissue disorders; K80.20 Calculus of gallbladder without cholecystitis without obstruction; Z91.148 Patient's other noncompliance with medication regimen for other reason
CPT/HCPCS: 36415; 50200; 71045-TC-FY; 74176-TC; 76775-TC; 80048; 80053; 81003; 81015; 82570; 82728; 83036; 83516; 83520; 83550; 83735; 83880; 84100; 84155; 84156; 84165; 84439; 84443; 84466; 84703; 85025; 85027; 85045; 85610; 85730; 86038; 86160; 86225; 86256; 86850; 86900; 86901; 86922; 88300-TC; 88329; 93005; 93306-TC; 93975; 99285-25; J1644; J2597

== ENCOUNTER 2024-04-06 18:41 | Emergency (ER) | payer OTHER ==
[2024-04-06 20:30] VITALS: BP 130/87; PULSE 68; RESP 16; TEMP 98.6; BMI 39.3
[2024-04-06] MEDS ORDERED: LIDOCAINE 5% TOPICAL PATCH ONE (20:52)
[2024-04-06] MEDS: LIDOCAINE 5% TOPICAL PATCH TP ONE (20:56)
[2024-04-07] MEDS ORDERED: LIDOCAINE PATCH REMOVAL MC SCH (07:00)
== END 2024-04-06 21:20 | disposition home or self-care (01) ==
LOC: FER 18:41
DX: M54.2 Cervicalgia (principal); M62.838 Other muscle spasm
CPT/HCPCS: 72050-TC-FY; 93005; 99284-25

== ENCOUNTER 2024-10-30 09:50 | Emergency (ER) | payer OTHER ==
[2024-10-30] MEDS ORDERED: LIDOCAINE 5% TOPICAL PATCH ONE (10:23)
[2024-10-30 10:25] VITALS: BP 115/70; PULSE 84; RESP 16; TEMP 97.9; BMI 16.6
[2024-10-30] MEDS: NAPROXEN 500 MG TABLET PO ONE (10:25)
[2024-10-30] MEDS: LIDOCAINE 5% TOPICAL PATCH TP ONE (10:40)
[2024-10-30] MEDS: ACETAMINOPHEN 500 MG TABLET (FP) PO ONE (10:50)
[2024-10-30] MEDS ORDERED: LIDOCAINE PATCH REMOVAL MC ONE (22:00)
== END 2024-10-30 11:00 | disposition home or self-care (01) ==
LOC: FER 09:50
DX: M54.50 Low back pain, unspecified (principal)
CPT/HCPCS: 72100-TC-FY; 84703; 99284-25

== ENCOUNTER 2025-05-13 09:46 | Observation (INO) | payer OTHER ==
[2025-05-13 13:29] LABS: ABSOLUTE IMMATURE GRANULOCYTES 0.03 x10^3/uL (0.0-0.031); BASOPHILS # 0.06 x10^3/uL (0.01-0.08); EOSINOPHIL % 1.2 % (0.7-5.8); EOSINOPHILS # 0.10 x10^3/uL (0.04-0.36); MCHC 34.5 g/dl (32.2-35.5); MEAN CELL VOLUME 73.4 fl (79.4-94.8); MEAN PLT VOLUME 9.7 fl (9.4-12.3); MONOCYTE # 0.43 x10^3/uL (0.24-0.86); MONOCYTE % 5.1 % (4.7-12.5); RDW 15.2 % (12.1-16.8)
[2025-05-13 13:37] LABS: INR 0.98 (0.83-1.09); PROTHROMBIN TIME (PATIENT) 10.8 SEC (9.7-13.0)
[2025-05-13 13:52] LABS: GLUCOSE,RANDOM 72 mg/dL (74-106)
[2025-05-13 13:53] LABS: TOT PROT 9.9 g/dl (6.4-8.2)
[2025-05-13 13:54] LABS: CO2 19 mmol/L (21-32)
[2025-05-13 13:55] LABS: ALK PHOS 459 U/L (40-150)
[2025-05-13 13:58] LABS: CREATININE 2.40 mg/dL (0.55-1.3); SGOT/AST 759 U/L (5-34); SGPT/ALT 965 U/L (0-55)
[2025-05-13] MEDS: PIPERACILLIN/TAZOB 3.375 GM 3.375 GM in DEXTROSE 5%-WATER - 50 ML IVPB SCH ×2 (15:41→16:13)
[2025-05-13] MEDS: LACTATED RINGERS SOLUTION 1,000 ML/1,000 ML INFUS.BAG IV SCH (16:46)
[2025-05-13 17:24] VITALS: BMI 34.8
[2025-05-13 18:12] LABS: GLUCOSE,RANDOM 87.0 mg/dL (74-106); TOT PROT 7.2 g/dl (6.4-8.2)
[2025-05-13 18:13] LABS: CO2 20.0 mmol/L (21-32)
[2025-05-13 18:14] LABS: ALK PHOS 379.0 U/L (40-150)
[2025-05-13 18:17] LABS: SGOT/AST 576.0 U/L (5-34); SGPT/ALT 776.0 U/L (0-55)
[2025-05-13 18:18] LABS: CREATININE 2.49 mg/dL (0.55-1.3)
[2025-05-13 19:13] LABS: HCV DIAGNOSTIC IN-HOUSE W/RFLX NON-REACTIVE (NONREACTIVE); HIV INTERPRETATION NEGATIVE (NEGATIVE)
[2025-05-13] MEDS: LABETALOL HCL 100 MG TABLET (FP) PO SCH (21:15)
[2025-05-14 08:58] LABS: ABSOLUTE IMMATURE GRANULOCYTES 0.02 x10^3/uL (0.0-0.031); BASOPHILS # 0.05 x10^3/uL (0.01-0.08); EOSINOPHIL % 2.2 % (0.7-5.8); EOSINOPHILS # 0.19 x10^3/uL (0.04-0.36); MCHC 34.1 g/dl (32.2-35.5); MEAN CELL VOLUME 73.8 fl (79.4-94.8); MEAN PLT VOLUME 9.5 fl (9.4-12.3); MONOCYTE # 0.56 x10^3/uL (0.24-0.86); MONOCYTE % 6.6 % (4.7-12.5); RDW 15.3 % (12.1-16.8)
[2025-05-14 09:05] LABS: INR 0.98 (0.83-1.09); PROTHROMBIN TIME (PATIENT) 10.7 SEC (9.7-13.0)
[2025-05-14 09:36] LABS: GLUCOSE,RANDOM 72.0 mg/dL (74-106)
[2025-05-14 09:37] LABS: TOT PROT 7.3 g/dl (6.4-8.2)
[2025-05-14] MEDS: amLODIPine BESYLATE 10 MG TABLET (FP) PO SCH (09:37)
[2025-05-14 09:38] LABS: CO2 23.0 mmol/L (21-32)
[2025-05-14 09:40] LABS: ALK PHOS 416.0 U/L (40-150)
[2025-05-14 09:42] LABS: CREATININE 2.5 mg/dL (0.55-1.3); SGOT/AST 558.0 U/L (5-34); SGPT/ALT 785.0 U/L (0-55)
[2025-05-14 09:57] LABS: HEPATITIS B SURF AG NON-MATERN NON-REACTIVE (NONREACTIVE)
[2025-05-14] MEDS ORDERED: ONDANSETRON 4 MG/2 ML VIAL IVPUSH PRN (10:43)
[2025-05-14] MEDS ORDERED: BUPIVACAINE HCL/PF 0.25% (2.5MG/ML) 10 ML VIAL ONE ×2 (12:04→12:44)
[2025-05-14] MEDS ORDERED: INDOCYANINE GREEN 25 MG/10 ML VIAL IVPUSH ONE (12:25)
[2025-05-14] MEDS ORDERED: cefOXitin SODIUM 2 GM VIAL (RESTRICTED TO ID) IVPB ONE (12:25)
[2025-05-14] MEDS ORDERED: PROPOFOL 20 ML ONE ×3 (13:22→15:21)
[2025-05-14] MEDS ORDERED: ROCURONIUM BROMIDE 50 MG/5 ML SYRINGE ONE (13:23)
[2025-05-14] MEDS ORDERED: SUCCINYLCHOLINE CHLORIDE 200 MG/10 ML SYRINGE ONE ×2 (14:23→15:09)
[2025-05-14] MEDS ORDERED: MIDAZOLAM HCL 2 MG/2 ML SINGLE DOSE VIAL ONE (14:23)
[2025-05-14] MEDS: INDOMETHACIN 50 MG RECTAL SUPPOSITORY PR ONE (14:23)
[2025-05-14] MEDS: BUPIVACAINE HCL/PF 0.25% (2.5MG/ML) 10 ML VIAL IJ ONE ×3 (14:56)
[2025-05-14] MEDS: cefOXitin SODIUM 2 GM VIAL (RESTRICTED TO ID) IVPB ONE (14:56)
[2025-05-14] MEDS ORDERED: SUGAMMADEX SODIUM 200 MG/2 ML VIAL ONE ×2 (15:54→16:02)
[2025-05-14] MEDS ORDERED: LACTATED RINGERS SOLUTION 1,000 ML IV SCH ×2 (16:15→16:43)
[2025-05-14] MEDS: LACTATED RINGERS SOLUTION 1,000 ML/1,000 ML INFUS.BAG IV SCH (17:42)
[2025-05-14] MEDS: LABETALOL HCL 100 MG TABLET (FP) PO SCH (21:48)
[2025-05-15 09:17] LABS: MCHC 34.9 g/dl (32.2-35.5); MEAN CELL VOLUME 74.5 fl (79.4-94.8); MEAN PLT VOLUME 9.4 fl (9.4-12.3); RDW 15.6 % (12.1-16.8)
[2025-05-15 09:39] LABS: GLUCOSE,RANDOM 96.0 mg/dL (74-106); TOT PROT 7.3 g/dl (6.4-8.2)
[2025-05-15 09:40] LABS: CO2 18.0 mmol/L (21-32)
[2025-05-15 09:42] LABS: ALK PHOS 382.0 U/L (40-150)
[2025-05-15 09:45] LABS: CREATININE 2.21 mg/dL (0.55-1.3); SGOT/AST 413.0 U/L (5-34); SGPT/ALT 747.0 U/L (0-55)
[2025-05-15] MEDS: amLODIPine BESYLATE 10 MG TABLET (FP) PO SCH (10:03)
[2025-05-15 17:41] LABS: ABSOLUTE IMMATURE GRANULOCYTES 0.13 x10^3/uL (0.0-0.031); BASOPHILS # 0.04 x10^3/uL (0.01-0.08); EOSINOPHIL % 0.1 % (0.7-5.8); EOSINOPHILS # 0.02 x10^3/uL (0.04-0.36); MCHC 34.0 g/dl (32.2-35.5); MEAN CELL VOLUME 75.6 fl (79.4-94.8); MEAN PLT VOLUME 9.7 fl (9.4-12.3); MONOCYTE # 0.74 x10^3/uL (0.24-0.86); MONOCYTE % 3.3 % (4.7-12.5); RDW 15.9 % (12.1-16.8)
[2025-05-15 18:05] LABS: GLUCOSE,RANDOM 89.0 mg/dL (74-106); TOT PROT 7.5 g/dl (6.4-8.2)
[2025-05-15 18:06] LABS: CO2 21.0 mmol/L (21-32)
[2025-05-15 18:08] LABS: ALK PHOS 349.0 U/L (40-150)
[2025-05-15 18:10] LABS: SGOT/AST 325.0 U/L (5-34); SGPT/ALT 652.0 U/L (0-55)
[2025-05-15 18:11] LABS: CREATININE 2.23 mg/dL (0.55-1.3)
[2025-05-15] MEDS: SIMETHICONE 80 MG TAB.CHEW (FP) PO ONE (20:33)
[2025-05-16 11:26] LABS: ABSOLUTE IMMATURE GRANULOCYTES 0.05 x10^3/uL (0.0-0.031); BASOPHILS # 0.05 x10^3/uL (0.01-0.08); EOSINOPHIL % 0.9 % (0.7-5.8); EOSINOPHILS # 0.14 x10^3/uL (0.04-0.36); MCHC 33.8 g/dl (32.2-35.5); MEAN CELL VOLUME 74.5 fl (79.4-94.8); MEAN PLT VOLUME 9.5 fl (9.4-12.3); MONOCYTE # 0.77 x10^3/uL (0.24-0.86); MONOCYTE % 5.2 % (4.7-12.5); RDW 15.8 % (12.1-16.8)
[2025-05-16] MEDS: SIMETHICONE 80 MG TAB.CHEW (FP) PO PRN (12:32)
[2025-05-16 13:10] LABS: SGOT/AST 251.0 U/L (5-34); SGPT/ALT 532.0 U/L (0-55)
[2025-05-16 13:11] LABS: CO2 25.0 mmol/L (21-32); CREATININE 2.27 mg/dL (0.55-1.3); GLUCOSE,RANDOM 66.0 mg/dL (74-106)
[2025-05-16 13:12] LABS: ALK PHOS 312.0 U/L (40-150); TOT PROT 6.3 g/dl (6.4-8.2)
[2025-05-16] MEDS: PIPERACILLIN/TAZOB 3.375 GM 3.375 GM in DEXTROSE 5%-WATER - 50 ML IVPB SCH (19:49)
[2025-05-17] MEDS ORDERED: ACETAMINOPHEN 500 MG TABLET (FP) PO PRN (08:25)
[2025-05-17 09:55] LABS: ABSOLUTE IMMATURE GRANULOCYTES 0.05 x10^3/uL (0.0-0.031); BASOPHILS # 0.05 x10^3/uL (0.01-0.08); EOSINOPHIL % 2.1 % (0.7-5.8); EOSINOPHILS # 0.22 x10^3/uL (0.04-0.36); MCHC 34.3 g/dl (32.2-35.5); MEAN CELL VOLUME 73.8 fl (79.4-94.8); MEAN PLT VOLUME 9.8 fl (9.4-12.3); MONOCYTE # 0.47 x10^3/uL (0.24-0.86); MONOCYTE % 4.5 % (4.7-12.5); RDW 15.2 % (12.1-16.8)
[2025-05-17] MEDS: ONDANSETRON *ODT* 4 MG TABLET SL PRN (10:31)
[2025-05-17 11:27] LABS: GLUCOSE,RANDOM 95.0 mg/dL (74-106); TOT PROT 6.4 g/dl (6.4-8.2)
[2025-05-17 11:28] LABS: CO2 25.0 mmol/L (21-32)
[2025-05-17 11:30] LABS: ALK PHOS 293.0 U/L (40-150)
[2025-05-17 11:33] LABS: CREATININE 2.13 mg/dL (0.55-1.3); SGOT/AST 282.0 U/L (5-34); SGPT/ALT 497.0 U/L (0-55)
[2025-05-17] MEDS: POTASSIUM CHLORIDE ORAL LIQUID 20 MEQ/15 ML PO ONE (11:57)
[2025-05-17 13:13] VITALS: BP 135/85; PULSE 83; RESP 18; TEMP 97.5
[2025-05-17] MEDS ORDERED: METOCLOPRAMIDE HCL INJECTION 10 MG/2 ML VIAL IVPUSH PRN (15:25)
[2025-05-17 18:06] LABS: CO2 28.0 mmol/L (21-32); TOT PROT 7.0 g/dl (6.4-8.2)
[2025-05-17 18:41] LABS: GLUCOSE,RANDOM 80.0 mg/dL (74-106)
[2025-05-17 18:44] LABS: ALK PHOS 328.0 U/L (40-150)
[2025-05-17 18:46] LABS: SGOT/AST 313.0 U/L (5-34); SGPT/ALT 541.0 U/L (0-55)
[2025-05-17 18:47] LABS: CREATININE 2.11 mg/dL (0.55-1.3)
== END 2025-05-17 17:45 | disposition home or self-care (01) ==
LOC: JER 09:46 → JERBED 11:42 → J5S 14:07
PROVIDERS: ADMIT Student in an Organized Health Care Education/Training Program; ATTEND Internal Medicine
PROC: 3E033NZ Introduction of Analgesics, Hypnotics, Sedatives into Peripheral Vein, Percutaneous Approach (ICD-10-PCS; principal; 2025-05-13)
PROC: 3E0337Z Introduction of Electrolytic and Water Balance Substance into Peripheral Vein, Percutaneous Approach (ICD-10-PCS; 2025-05-13)
PROC: 3E03329 Introduction of Other Anti-infective into Peripheral Vein, Percutaneous Approach (ICD-10-PCS; 2025-05-13)
PROC: 0FT44ZZ Resection of Gallbladder, Percutaneous Endoscopic Approach (ICD-10-PCS; 2025-05-13)
DX: K80.20 Calculus of gallbladder without cholecystitis without obstruction (principal); I12.9 Hypertensive chronic kidney disease with stage 1 through stage 4 chronic kidney disease, or unspecified chronic kidney disease; N18.4 Chronic kidney disease, stage 4 (severe); E78.5 Hyperlipidemia, unspecified; R74.01 Elevation of levels of liver transaminase levels; Z79.85 Long-term (current) use of injectable non-insulin antidiabetic drugs
CPT/HCPCS: 47562; 96361; 96365; 96375; S2900; 36415; 74181-TC; 76700-TC; 76705-TC; 80048; 80053; 80076; 82550; 83516; 83735; 84100; 84703; 85025; 85610; 86038; 86704; 86708; 86803; 86850; 86900; 86901; 87340; 87389; 87517; 88304-TC; 94760; 99285-25; G0378; Q0162

== ENCOUNTER 2025-05-29 18:18 | Inpatient (IN) | payer OTHER ==
[2025-05-29 20:10] LABS: EPI CELLS 5 /uL (0-25.1); HYALINE CASTS 0 /uL (0-3.1); URINE APPEARANCE CLEAR; URINE BACTERIA 50 /uL (0-1359); URINE BILIRUBIN NEGATIVE (NEGATIVE); URINE COLOR YELLOW; URINE GLUCOSE (UA) NEGATIVE (NEGATIVE); URINE KETONE NEGATIVE (NEGATIVE); URINE LEUK ESTERASE NEGATIVE (NEGATIVE); URINE NITRITE NEGATIVE (NEGATIVE); URINE PROTEIN 1+ (NEGATIVE); URINE RBC 9 /uL (0-23.9); URINE UROBILINOGEN 0.2 mg/dL (0.2-1.0); URINE WBC 3 /uL (0-25.8)
[2025-05-29 20:29] LABS: ABSOLUTE IMMATURE GRANULOCYTES 0.02 x10^3/uL (0.0-0.031); BASOPHILS # 0.10 x10^3/uL (0.01-0.08); EOSINOPHIL % 3.8 % (0.7-5.8); EOSINOPHILS # 0.43 x10^3/uL (0.04-0.36); MCHC 34.8 g/dl (32.2-35.5); MEAN CELL VOLUME 73.6 fl (79.4-94.8); MEAN PLT VOLUME 9.4 fl (9.4-12.3); MONOCYTE # 0.77 x10^3/uL (0.24-0.86); MONOCYTE % 6.9 % (4.7-12.5); RDW 16.5 % (12.1-16.8)
[2025-05-29] MEDS: LACTATED RINGERS SOLUTION 1000 ML INFUS.BAG IV ONE (20:30)
[2025-05-29 20:51] LABS: GLUCOSE,RANDOM 66 mg/dL (74-106)
[2025-05-29 20:52] LABS: TOT PROT 8.9 g/dl (6.4-8.2)
[2025-05-29 20:53] LABS: CO2 21 mmol/L (21-32)
[2025-05-29 20:55] LABS: ALK PHOS 364 U/L (40-150)
[2025-05-29 20:57] LABS: SGOT/AST 920 U/L (5-34); SGPT/ALT 1004 U/L (0-55)
[2025-05-29 20:58] LABS: CREATININE 2.34 mg/dL (0.55-1.3)
[2025-05-29 21:01] LABS: HCG,QUALITATIVE URINE Negative
[2025-05-29 23:00] LABS: GLUCOSE,RANDOM 114.0 mg/dL (74-106); TOT PROT 7.4 g/dl (6.4-8.2)
[2025-05-29 23:01] LABS: CO2 21.0 mmol/L (21-32)
[2025-05-29 23:03] LABS: ALK PHOS 374.0 U/L (40-150)
[2025-05-29 23:06] LABS: CREATININE 2.37 mg/dL (0.55-1.3); SGOT/AST 859.0 U/L (5-34)
[2025-05-29 23:16] LABS: SGPT/ALT 959.0 U/L (0-55)
[2025-05-30 01:02] LABS: GLUCOSE,RANDOM 88.0 mg/dL (74-106); TOT PROT 7.2 g/dl (6.4-8.2)
[2025-05-30 01:03] LABS: CO2 22.0 mmol/L (21-32)
[2025-05-30 01:05] LABS: ALK PHOS 347.0 U/L (40-150)
[2025-05-30 01:08] LABS: CREATININE 2.28 mg/dL (0.55-1.3); SGOT/AST 830.0 U/L (5-34); SGPT/ALT 931.0 U/L (0-55)
[2025-05-30] MEDS: SODIUM CHLORIDE 1,000 ML IV SCH (03:27)
[2025-05-30 04:33] VITALS: BMI 33.5
[2025-05-30] MEDS ORDERED: HEPARIN NA (PORCINE) 5,000 UNITS/ML 1ML VIAL SQ SCH (06:00)
[2025-05-30 08:53] LABS: ABSOLUTE IMMATURE GRANULOCYTES 0.02 x10^3/uL (0.0-0.031); BASOPHILS # 0.10 x10^3/uL (0.01-0.08); EOSINOPHIL % 3.3 % (0.7-5.8); EOSINOPHILS # 0.32 x10^3/uL (0.04-0.36); MCHC 35.8 g/dl (32.2-35.5); MEAN CELL VOLUME 72.6 fl (79.4-94.8); MEAN PLT VOLUME 9.6 fl (9.4-12.3); MONOCYTE # 0.73 x10^3/uL (0.24-0.86); MONOCYTE % 7.6 % (4.7-12.5); RDW 15.9 % (12.1-16.8)
[2025-05-30 09:02] LABS: INR 1.06 (0.83-1.09); PROTHROMBIN TIME (PATIENT) 11.5 SEC (9.7-13.0)
[2025-05-30 09:07] LABS: GLUCOSE,RANDOM 73.0 mg/dL (74-106)
[2025-05-30 09:08] LABS: TOT PROT 6.6 g/dl (6.4-8.2)
[2025-05-30 09:09] LABS: CO2 22.0 mmol/L (21-32)
[2025-05-30 09:11] LABS: ALK PHOS 310.0 U/L (40-150)
[2025-05-30 09:13] LABS: CREATININE 2.2 mg/dL (0.55-1.3); SGPT/ALT 877.0 U/L (0-55)
[2025-05-30 09:14] LABS: SGOT/AST 767.0 U/L (5-34)
[2025-05-30] MEDS: amLODIPine BESYLATE 10 MG TABLET (FP) PO SCH (09:33)
[2025-05-30] MEDS: LABETALOL HCL 200 MG, LABETALOL HCL 100 MG PO SCH (09:33)
[2025-05-30] MEDS ORDERED: LABETALOL HCL 100 MG TABLET (FP) PO SCH (10:00)
[2025-05-30 10:38] LABS: LDL CHOLESTEROL (ONLY SJRH) 228.0 mg/dL (5-100)
[2025-05-30 18:55] LABS: MCHC 35.6 g/dl (32.2-35.5); MEAN CELL VOLUME 72.7 fl (79.4-94.8); MEAN PLT VOLUME 9.7 fl (9.4-12.3); RDW 16.3 % (12.1-16.8)
[2025-05-30 19:16] LABS: GLUCOSE,RANDOM 107.0 mg/dL (74-106); TOT PROT 6.6 g/dl (6.4-8.2)
[2025-05-30 19:17] LABS: CO2 22.0 mmol/L (21-32)
[2025-05-30 19:18] LABS: ALK PHOS 341.0 U/L (40-150)
[2025-05-30 19:21] LABS: SGOT/AST 726.0 U/L (5-34); SGPT/ALT 889.0 U/L (0-55)
[2025-05-30 19:22] LABS: CREATININE 2.04 mg/dL (0.55-1.3)
[2025-05-31] MEDS: PIPERACILLIN/TAZOB 3.375 GM 3.375 GM in DEXTROSE 5%-WATER - 50 ML IVPB SCH (12:27)
[2025-05-31] MEDS ORDERED: PIPERACILLIN/TAZOB 3.375 GM 3.375 GM in DEXTROSE 5%-WATER - 50 ML IVPB SCH (18:00)
[2025-05-31 19:03] LABS: MCHC 34.4 g/dl (32.2-35.5); MEAN CELL VOLUME 73.9 fl (79.4-94.8); MEAN PLT VOLUME 10.1 fl (9.4-12.3); RDW 16.7 % (12.1-16.8)
[2025-05-31 19:29] LABS: GLUCOSE,RANDOM 112.0 mg/dL (74-106); TOT PROT 6.6 g/dl (6.4-8.2)
[2025-05-31 19:30] LABS: CO2 21.0 mmol/L (21-32)
[2025-05-31 19:32] LABS: ALK PHOS 330.0 U/L (40-150)
[2025-05-31 19:35] LABS: CREATININE 2.09 mg/dL (0.55-1.3); IRON SERUM 148.0 ug/dL (50-175); SGOT/AST 678.0 U/L (5-34); SGPT/ALT 886.0 U/L (0-55)
[2025-06-01 09:39] LABS: ABSOLUTE IMMATURE GRANULOCYTES 0.02 x10^3/uL (0.0-0.031); BASOPHILS # 0.09 x10^3/uL (0.01-0.08); EOSINOPHIL % 3.3 % (0.7-5.8); EOSINOPHILS # 0.31 x10^3/uL (0.04-0.36); MCHC 35.9 g/dl (32.2-35.5); MEAN CELL VOLUME 73.0 fl (79.4-94.8); MEAN PLT VOLUME 9.7 fl (9.4-12.3); MONOCYTE # 0.64 x10^3/uL (0.24-0.86); MONOCYTE % 6.9 % (4.7-12.5); RDW 16.4 % (12.1-16.8)
[2025-06-01 09:46] LABS: INR 1.08 (0.83-1.09); PROTHROMBIN TIME (PATIENT) 11.9 SEC (9.7-13.0)
[2025-06-01 11:22] LABS: GLUCOSE,RANDOM 69.0 mg/dL (74-106)
[2025-06-01 11:23] LABS: TOT PROT 7.1 g/dl (6.4-8.2)
[2025-06-01 11:24] LABS: CO2 19.0 mmol/L (21-32)
[2025-06-01 11:25] LABS: ALK PHOS 350.0 U/L (40-150)
[2025-06-01 11:28] LABS: CREATININE 2.22 mg/dL (0.55-1.3); SGOT/AST 794.0 U/L (5-34); SGPT/ALT 961.0 U/L (0-55)
[2025-06-01] MEDS: INDOMETHACIN 50 MG RECTAL SUPPOSITORY PR ONE (18:05)
[2025-06-01 18:47] LABS: MCHC 35.2 g/dl (32.2-35.5); MEAN CELL VOLUME 73.3 fl (79.4-94.8); MEAN PLT VOLUME 10.1 fl (9.4-12.3); RDW 16.5 % (12.1-16.8)
[2025-06-01 19:03] LABS: GLUCOSE,RANDOM 100.0 mg/dL (74-106); TOT PROT 6.2 g/dl (6.4-8.2)
[2025-06-01 19:04] LABS: CO2 18.0 mmol/L (21-32)
[2025-06-01 19:06] LABS: ALK PHOS 299.0 U/L (40-150)
[2025-06-01 19:08] LABS: SGOT/AST 683.0 U/L (5-34); SGPT/ALT 844.0 U/L (0-55)
[2025-06-01 19:09] LABS: CREATININE 2.22 mg/dL (0.55-1.3)
[2025-06-02 08:05] LABS: ABSOLUTE IMMATURE GRANULOCYTES 0.03 x10^3/uL (0.0-0.031); BASOPHILS # 0.09 x10^3/uL (0.01-0.08); EOSINOPHIL % 3.7 % (0.7-5.8); EOSINOPHILS # 0.37 x10^3/uL (0.04-0.36); MCHC 34.9 g/dl (32.2-35.5); MEAN CELL VOLUME 73.3 fl (79.4-94.8); MEAN PLT VOLUME 9.7 fl (9.4-12.3); MONOCYTE # 0.73 x10^3/uL (0.24-0.86); MONOCYTE % 7.3 % (4.7-12.5); RDW 16.4 % (12.1-16.8)
[2025-06-02 08:33] LABS: TOT PROT 6.6 g/dl (6.4-8.2)
[2025-06-02 08:34] LABS: INR 1.11 (0.83-1.09); PROTHROMBIN TIME (PATIENT) 12.1 SEC (9.7-13.0)
[2025-06-02 08:36] LABS: ALK PHOS 333.0 U/L (40-150)
[2025-06-02 08:37] LABS: GLUCOSE,RANDOM 84.0 mg/dL (74-106)
[2025-06-02 08:38] LABS: CO2 21.0 mmol/L (21-32); TOT PROT 6.7 g/dl (6.4-8.2)
[2025-06-02 08:39] LABS: SGOT/AST 809.0 U/L (5-34); SGPT/ALT 926.0 U/L (0-55)
[2025-06-02 08:40] LABS: ALK PHOS 335.0 U/L (40-150)
[2025-06-02 08:42] LABS: LDH 465.0 U/L (84-246)
[2025-06-02 08:43] LABS: CREATININE 2.25 mg/dL (0.55-1.3); SGOT/AST 813.0 U/L (5-34); SGPT/ALT 925.0 U/L (0-55)
[2025-06-02 15:08] LABS: GLIADIN ANTIBODY IGA 5 units (0-19); TRANSGLUTAMINASE IGG 2 U/mL (0-5)
[2025-06-02 16:12] LABS: ALPHA-1-ANTITRYPSIN SERUM 180 mg/dL (100-188)
[2025-06-02 20:14] LABS: MCHC 35.0 g/dl (32.2-35.5); MEAN CELL VOLUME 73.6 fl (79.4-94.8); MEAN PLT VOLUME 9.9 fl (9.4-12.3); RDW 16.4 % (12.1-16.8)
[2025-06-02 20:22] LABS: IG G QN IMMUNOGLOBULIN 1625 mg/dL (586-1602); IGG SUBCLASS 1 856 mg/dL (248-810); IGG SUBCLASS 3 >199 mg/dL (15-102)
[2025-06-02 21:51] VITALS: RESP 18
[2025-06-03 09:09] LABS: INR 1.06 (0.83-1.09); PROTHROMBIN TIME (PATIENT) 11.7 SEC (9.7-13.0)
[2025-06-03 09:55] LABS: TOT PROT 6.9 g/dl (6.4-8.2)
[2025-06-03 09:57] LABS: ALK PHOS 324.0 U/L (40-150)
[2025-06-03 10:00] LABS: SGOT/AST 857.0 U/L (5-34); SGPT/ALT 959.0 U/L (0-55)
[2025-06-04 03:25] VITALS: BP 114/75; PULSE 89; TEMP 98.6
== END 2025-06-04 03:30 | disposition short-term general hospital (02) ==
LOC: JER 18:18 → JERBED 22:39 → J6S 05-30 02:47 → OBSVTOIN 05-30 11:23
PROVIDERS: ADMIT Internal Medicine; ATTEND Internal Medicine
DX: K75.4 Autoimmune hepatitis (principal); K71.9 Toxic liver disease, unspecified; T38.3X5A Adverse effect of insulin and oral hypoglycemic [antidiabetic] drugs, initial encounter; E78.5 Hyperlipidemia, unspecified; I12.9 Hypertensive chronic kidney disease with stage 1 through stage 4 chronic kidney disease, or unspecified chronic kidney disease; N18.4 Chronic kidney disease, stage 4 (severe); R11.0 Nausea; K80.20 Calculus of gallbladder without cholecystitis without obstruction; E87.5 Hyperkalemia; E80.6 Other disorders of bilirubin metabolism; R79.89 Other specified abnormal findings of blood chemistry
CPT/HCPCS: 36415; 74176-TC; 74181-TC; 76705-TC; 76830-TC; 80048; 80053; 80061; 80076; 80307; 81003; 81256; 82103; 82140; 82248; 82390; 82550; 82728; 82784; 82787; 82977; 83036; 83516; 83540; 83550; 83615; 83690; 83735; 83883; 84080; 84100; 84703; 85025; 85027; 85610; 86140; 86160; 86308; 86376; 86644; 86645; 86664; 86850; 86900; 86901; 87086; 87497; 87637-QW; 87799; 93005; 93010; 93975; 99285-25; G0378